=== PATIENT | female | born 2000 | race Caucasian/White ===

== ENCOUNTER 2023-08-17 00:20 | Emergency (ER) | payer BC, OTHER ==
[~2023-08-17] VITALS: Ht 172.7 cm; Wt 88.6 kg
[2023-08-17 00:25] VITALS: TEMP 97.4
[2023-08-17] MEDS ORDERED: Amoxicillin/Clavulanate K+ 875/125 MG TAB PO ONE (00:45)
[2023-08-17] MEDS ORDERED: Ibuprofen 600 MG TAB PO ONE (00:45)
[2023-08-17] MEDS ORDERED: AMOXICILLIN 8751 TAB PO (00:54)
[2023-08-17 00:56] VITALS: BP 124/28; PULSE 98
== END 2023-08-17 01:06 | disposition home or self-care (01) ==
LOC: COL.ER 00:20
DX: H66.91 Otitis media, unspecified, right ear (principal)